=== PATIENT | female | born 1965 | race Two or more races ===

== ENCOUNTER → 2024-08-28 | Outpatient (CLI) | payer BC, MEDICAID, SELFPAY ==
--- NOTE | 2024-08-28 09:12 | XR_ITS ---
Examination: Orbits 4 views TECHNIQUE: Wendy Jaimes right and left oblique orbits 4 views Exam date and time: August 28, 2024 0937 hours INDICATIONS: History right orbital floor fracture, persistent pain and numbness right side of the face FINDINGS: Large blowout fracture right inferior orbital rim No blood in the maxillary antra Maxilla mandible intact as well as cranial vault IMPRESSION: Large right orbital inferior wall blowout fracture Consider repeat CT facial study follow-up as clinically warranted
== END | disposition home or self-care (01) ==
LOC: CDIM 09:03
PROVIDERS: PCP Nurse Practitioner Family; Referring Provider Nurse Practitioner Family; Visit Provider Nurse Practitioner Family
DX: S02.31XD Fracture of orbital floor, right side, subsequent encounter for fracture with routine healing (principal); X58.XXXD Exposure to other specified factors, subsequent encounter
CPT/HCPCS: 70200

== ENCOUNTER → 2024-10-27 | Outpatient (CLI) | payer BC, MEDICAID, SELFPAY ==
--- NOTE | 2024-10-27 10:05 | XR_ITS ---
Examination: Facial series 5 views TECHNIQUE: shun Nguyen, lateral, right and left orbital oblique views total 5 views Exam date and time: October 27, 2024 1026 hours INDICATIONS: Patient fell 4 months ago with fracture of the right inferior orbital wall FINDINGS: Blowout fracture right inferior orbital wall with soft tissue protrusion No blood in the maxillary antra Maxilla mandible intact IMPRESSION: Blowout fracture right inferior orbital wall with soft tissue protrusion Repeat maxillofacial CT would best assess for entrapment of the inferior rectus muscle, as clinically warranted
== END | disposition home or self-care (01) ==
PROVIDERS: PCP Nurse Practitioner Family; Referring Provider Nurse Practitioner Family; Visit Provider Nurse Practitioner Family
DX: S02.31XA Fracture of orbital floor, right side, initial encounter for closed fracture (principal); W19.XXXA Unspecified fall, initial encounter
CPT/HCPCS: 70200

== ENCOUNTER → 2024-11-16 | Outpatient (CLI) | payer BC, SELFPAY ==
--- NOTE | 2024-11-16 | XR_ITS ---
Examination: Screening digital mammography, unilateral left Computer aided detection 3-D breast Tomosynthesis, unilateral Date and time of exam: 11/16/2024, 20 6:00 PM Comparisons: February 2018 through March 2023 Indications: Screening Technique: Nonmagnified MLO, CC views of the left breast to been obtained, reconstructed from 3-D Tomosynthesis images. R2 computer aided detection program utilized for evaluation of suspicious masses and/or abnormal calcifications. 3-D Tomosynthesis images obtained. Findings: There are scattered areas of fibroglandular density. No evidence of abnormal masses or suspicious calcifications. Impression: BI-RADS category 1: Negative findings (within normal) Recommend 1 year follow-up mammogram
== END | disposition home or self-care (01) ==
PROVIDERS: PCP Nurse Practitioner Family; Referring Provider Nurse Practitioner Family; Visit Provider Nurse Practitioner Family
DX: Z12.31 Encounter for screening mammogram for malignant neoplasm of breast (principal); R92.312 Mammographic fatty tissue density, left breast
CPT/HCPCS: 77063; 77067